=== PATIENT | female | born 1985 | race Caucasian/White ===

== ENCOUNTER 2017-03-10 15:45 | Emergency (ER) | payer SELFPAY ==
[~2017-03-10] VITALS: Ht 165.1 cm; Wt 70.5 kg
[2017-03-10] MEDS ORDERED: SODIUM CHLORIDE FLUSH 10ML SYR IVF ONE (16:00)
[2017-03-10] MEDS ORDERED: SODIUM CHLORIDE 0.9% 1,000ML IVBOLUS ONE (16:00)
[2017-03-10] MEDS ORDERED: ONDANSETRON 2MG/ML, 2ML IVPush ONE (16:00)
[2017-03-10] MEDS ORDERED: FAMOTIDINE 20 MG/2 ML IVP ONE (16:00)
[2017-03-10 16:22] LABS: ASPARTATE AMINO TRANSFERASE 51 U/L (15-37); BLOOD UREA NITROGEN 10 mg/dL (7-18)
[2017-03-10] MEDS ORDERED: IBUPROFEN 200 MG TABLET PO ONE (17:00)
[2017-03-10] MEDS ORDERED: FAMOTIDINE 20 MG/2 ML ONE (17:08)
[2017-03-10] MEDS ORDERED: ONDANSETRON 2MG/ML, 2ML ONE (17:08)
[2017-03-10 18:26] VITALS: BP 123/76
== END 2017-03-10 18:28 | disposition home or self-care (01) ==
LOC: ED 16:23
DX: N30.90 Cystitis, unspecified without hematuria (principal); F10.20 Alcohol dependence, uncomplicated; K75.9 Inflammatory liver disease, unspecified
CPT/HCPCS: 36415; 80053; 81001; 83690; 84703; 85025; 87086; 93005; 96361; 96374; 96375; 99285; J2405; J7030; S0028

== ENCOUNTER 2017-07-16 17:18 | Emergency (ER) | payer OTHER ==
[~2017-07-16] VITALS: Ht 162.6 cm; Wt 65.0 kg
[2017-07-16 19:32] VITALS: BP 125/80
== END 2017-07-16 19:33 | disposition home or self-care (01) ==
LOC: ED 19:17
DX: F10.129 Alcohol abuse with intoxication, unspecified (principal)
CPT/HCPCS: 36415; 80047; 99283